=== PATIENT | female | born 1955 | race Two or more races ===

== ENCOUNTER 2023-01-06 11:02 | Emergency (ER) | payer MEDICARE ==
[2023-01-06] MEDS ORDERED: Meclizine HCl 25 MG TAB ONE (13:05)
[2023-01-06 13:22] LABS: Bilirubin Negative (Negative); Blood, Urine Negative (Negative); Glucose, Urine (Dipstick) Normal (Negative); Ketone, Urine 20 mg/dL (Negative); Leukocyte 25 Leu/uL (Negative); Nitrite Negative (Negative); Protein, Urine (Dipstick) Negative (Neg-Trace); RBC/HPF 0-3 HPF (0-3); Specific Gravity, Urine 1.014 (1.002-1.036); Squamous Epithelial 0-3 HPF (0-3); Urobilinogen Normal mg/dL (Less than 2); pH, Urine 7.5 (5.0-9.0)
[2023-01-06 13:23] LABS: Bacteria/HPF Rare-Few HPF (None Seen); Clarity Hazy (Clear)
== END 2023-01-06 14:03 | disposition home or self-care (01) ==
LOC: ERS 11:02
DX: R42 Dizziness and giddiness (principal); E03.9 Hypothyroidism, unspecified
CPT/HCPCS: 81003; 81015; 93005